=== PATIENT | male | born 1960 | race Caucasian/White ===

== ENCOUNTER → 2019-11-27 | Emergency (ER) | payer MEDICARE, MEDICAID ==
[~2019-11-27] VITALS: Ht 180.3 cm; Wt 96.6 kg
--- NOTE | 2019-11-27 21:37 | PHYS DOC ---
Past History Past Medical History: Other Past Surgical History: Other Alcohol Use: Heavy Drug Use: None General Adult EDM: Chief Complaint: Bugs HPI: HPI: Patient is a 59-year-old male who presents secondary to concern for bugs on the back of his neck and in his skin. This is been ongoing for the past 3 years. Patient reportedly has seen the [place] [facility] and also a physician in [facility] and was reportedly treated for shingles which did not improve his symptoms. He is very concerned that something abnormal is going on. He denies suicidal or homicidal ideation. Review of Systems: Review of Systems: All other systems negative except for documented in HPI Heart Score: Risk Factors: Risk Factors: DM, Current or recent (<one month) smoker, HTN, HLP, family history of CAD, obesity. Risk Scores: Score 0 - 3: 2.5% MACE over next 6 weeks - Discharge Home Score 4 - 6: 20.3% MACE over next 6 weeks - Admit for Clinical Observation Score 7 - 10: 72.7% MACE over next 6 weeks - Early Invasive Strategies Allergies: Allergies: Allergies Coded Allergies Type Severity Reaction Last Updated Verified No Known Drug Allergies 12/26/15 No Physical Exam: PE: Constitutional: Well developed, well nourished, no acute distress, non-toxic appearance. [] HENT: Evidence of recent brain surgery, bilateral external ears normal, oropharynx moist, no oral exudates, nose normal. [] Eyes: PERRLA, EOMI, conjunctiva normal, no discharge. [] Neck: Normal range of motion, no tenderness, supple, no stridor. [] Cardiovascular:Heart rate regular rhythm, no murmur [] Lungs & Thorax: Bilateral breath sounds clear to auscultation [] Abdomen: Bowel sounds normal, soft, no tenderness, no masses, no pulsatile masses. [] Skin: Warm, dry, no erythema, no rash. [] Back: No tenderness, no CVA tenderness. [] Extremities: No tenderness, no cyanosis, no clubbing, ROM intact, no edema. [] Neurologic: No focal neurologic deficits Psychologic: Affect normal, judgement normal, mood normal. [] EKG: EKG: [] Radiology/Procedures: Radiology/Procedures: [] Course & Med Decision Making: Course & Med Decision Making This patient is seen for reported bugs on the back of his neck. Examination is unremarkable. Patient is instructed to follow-up with his primary care physician as he has no emergent medical condition. Niki Disclaimer: Niki Disclaimer: This electronic medical record was generated, in whole or in part, using a voice recognition dictation system. Departure Departure: Impression: Primary Impression: Encounter for medical screening examination Disposition: HOME, SELF-CARE Condition: STABLE Referrals: PCP,UNKNOWN (PCP) Additional Instructions: Please call your family physician tomorrow to make an appointment for follow-up and if your family physician is not able to answer your questions you may need referral to a emblem drawer in. ZANDER BELTRAN DO Nov 27, 2019 21:37
[2019-11-27 21:39] VITALS: BP 167/84
== END ==
LOC: ER 19:56
DX: Z00.8 Encounter for other general examination (principal); F10.20 Alcohol dependence, uncomplicated; Y90.9 Presence of alcohol in blood, level not specified
CPT/HCPCS: 99281